=== PATIENT | female | born 1995 | race Caucasian/White ===

== ENCOUNTER 2021-12-02 16:04 | Inpatient (IN) | payer OTHER ==
[~2021-12-02] VITALS: Ht 149.9 cm; Wt 74.5 kg
[2021-12-02] MEDS ORDERED: LABE100T5 PO (16:17)
[2021-12-02] MEDS ORDERED: PROZ20CA11 PO (16:17)
[2021-12-02] MEDS ORDERED: HOME MED LIST COMPLETE! XX SCH (17:20)
[2021-12-02 17:21] LABS: HEMATOCRIT 40.6 % (36.0-47.0); HEMOGLOBIN 12.6 g/dl (12.0-15.5); MEAN CORPUSCULAR HEMOGLOBIN 23.6 pg (27.0-33.0); PLATELET COUNT, AUTOMATED 317 10^3/uL (150-450); RED BLOOD COUNT 5.34 10^6/uL (4.00-5.40); WHITE BLOOD COUNT 9.8 10^3/uL (4.0-10.0)
[2021-12-02 17:49] LABS: ACETAMINOPHEN LEVEL < 2.0 UG/ML (10.0-30.0); ALBUMIN 4.5 GM/DL (3.2-5.2); ALT/SGPT 60 U/L (12-78); BILIRUBIN,DIRECT < 0.1 MG/DL (0.0-0.2); BILIRUBIN,TOTAL 0.2 MG/DL (0.2-1.0); BLOOD UREA NITROGEN 14 MG/DL (7-18); CALCIUM LEVEL 9.9 MG/DL (8.5-10.1); CARBON DIOXIDE LEVEL 28 MEQ/L (21-32); CHLORIDE LEVEL 104 MEQ/L (98-107); CREATININE FOR GFR 0.82 MG/DL (0.55-1.30); ETHYL ALCOHOL (ETHANOL) < 0.003 % (0.000-0.010); GLOMERULAR FILTRATION RATE > 60.0 (>60); GLUCOSE, FASTING 90 MG/DL (70-100); MAGNESIUM LEVEL 2.1 MG/DL (1.8-2.4); POTASSIUM SERUM 4.1 MEQ/L (3.5-5.1); SODIUM LEVEL 140 MEQ/L (136-145); TOTAL PROTEIN 8.8 GM/DL (6.4-8.2)
[2021-12-02 17:56] LABS: HCG, SERUM QUALITATIVE NEGATIVE (NEGATIVE)
[2021-12-02 18:05] LABS: RSV AMPLIFICATION NEGATIVE (NEGATIVE)
[2021-12-02] MEDS ORDERED: ACETAMINOPHEN 325 MG TAB PO ONE (18:30)
[2021-12-02 21:56] LABS: AMPHETAMINES LEVEL URINE NEGATIVE (NEGATIVE); BARBITURATES URINE NEGATIVE (NEGATIVE); BENZODIAZEPINES URINE NEGATIVE (NEGATIVE); CANNABINOIDS URINE POSITIVE (NEGATIVE); COCAINE METABOLITE URINE NEGATIVE (NEGATIVE); METHADONE URINE NEGATIVE (NEGATIVE); OPIATES URINE NEGATIVE (NEGATIVE); PHENCYCLIDINE URINE NEGATIVE (NEGATIVE)
[2021-12-02] MEDS ORDERED: MAALOX 30 ML SUSP *UDC PO PRN (22:40)
[2021-12-02] MEDS ORDERED: LORazepam 1 MG TAB PO PRN (22:40)
[2021-12-02] MEDS ORDERED: MOM 30ML SUSPENSION UDC PO PRN (22:40)
[2021-12-03 00:30] VITALS: BP 168/112
[2021-12-03] MEDS ORDERED: LABETALOL 100MG TAB PO ONE (00:35)
[2021-12-03] MEDS: traZODone 50 MG TAB PO PRN ×2 (00:48→20:51)
[2021-12-03] MEDS: ACETAMINOPHEN TAB 650MG DOSE (2X325MG) PO PRN ×2 (00:48→09:26)
[2021-12-03 06:37] VITALS: BP 151/86
[2021-12-03] MEDS ORDERED: FLUoxetine 20 MG CAP PO SCH (09:00)
[2021-12-03] MEDS ORDERED: LABETALOL 100MG TAB PO SCH (09:00)
[2021-12-03] MEDS ORDERED: RIZATRIPTAN BENZOATE 10 MG TAB PO PRN (12:45)
[2021-12-03] MEDS ORDERED: FIORICET TAB PO ONE (12:45)
[2021-12-03] MEDS ORDERED: LOSARTAN 50MG TABLET PO ONE (13:00)
[2021-12-03 13:55] LABS: INR 1.03; PROTHROMBIN TIME 13.9 SECONDS (12.7-14.5)
[2021-12-03 13:56] LABS: PARTIAL THROMBOPLASTIN TIME 30.2 SECONDS (25.9-37.0)
[2021-12-03 13:59] LABS: D-DIMER QUANT 343.46 ng/ml (<500)
[2021-12-03 14:00] VITALS: BP 160/90
[2021-12-03 14:16] LABS: ALBUMIN 4.4 GM/DL (3.2-5.2); ALT/SGPT 54 U/L (12-78); BILIRUBIN,DIRECT < 0.1 MG/DL (0.0-0.2); BILIRUBIN,TOTAL 0.5 MG/DL (0.2-1.0); C REACTIVE PROTEIN QUANTITATIV 0.44 MG/DL (0.00-0.30); FERRITIN 9 NG/ML (8-252); LDH LACTATE DEHYDROGENASE 147 U/L (84-246); TOTAL PROTEIN 8.7 GM/DL (6.4-8.2)
[2021-12-03 14:33] LABS: CPK CREATINE PHOSPHOKINASE 99 U/L (26-192)
[2021-12-03] MEDS: GABAPENTIN 100 MG CAP PO SCH ×2 (15:13→20:51)
[2021-12-03] MEDS: LOSARTAN 50MG TABLET PO SCH (21:19)
[2021-12-04 06:54] VITALS: BP 134/81
[2021-12-04] MEDS: GABAPENTIN 100 MG CAP PO SCH ×3 (09:36→22:28)
[2021-12-04] MEDS: FLUoxetine 20 MG CAP PO SCH (09:36)
[2021-12-04] MEDS: ACETAMINOPHEN TAB 650MG DOSE (2X325MG) PO PRN (09:38)
[2021-12-04] MEDS: LOSARTAN 50MG TABLET PO SCH ×2 (09:51→22:28)
[2021-12-04 10:15] VITALS: BP 158/96
[2021-12-04 17:38] VITALS: BP 147/93
[2021-12-04 22:15] VITALS: BP 158/96
[2021-12-04] MEDS: traZODone 50 MG TAB PO PRN (22:29)
[2021-12-05 07:06] VITALS: BP 145/82
[2021-12-05] MEDS ORDERED: GABA-1171 PO (08:59)
[2021-12-05] MEDS ORDERED: FLUO-96 PO (08:59)
[2021-12-05] MEDS ORDERED: FLUO40CA PO (08:59)
[2021-12-05] MEDS ORDERED: TRAZ-252 PO (08:59)
[2021-12-05] MEDS ORDERED: MAXA10TA14 PO (08:59)
[2021-12-05] MEDS ORDERED: COZA50TA PO (08:59)
[2021-12-05] MEDS ORDERED: SELF1KIT MC (09:03)
[2021-12-05] MEDS ORDERED: AMLO10TA PO (09:03)
[2021-12-05] MEDS: GABAPENTIN 100 MG CAP PO SCH (09:22)
[2021-12-05] MEDS: FLUoxetine 20 MG CAP PO SCH (09:24)
[2021-12-05 09:25] VITALS: BP 162/99
[2021-12-05] MEDS: LOSARTAN 50MG TABLET PO SCH (09:25)
[2021-12-05 12:08] VITALS: BP 142/98
[2021-12-05 13:31] VITALS: BP 145/82
== END 2021-12-05 14:33 | disposition home or self-care (01) | DRG 885 ==
LOC: M ED 16:04 → M ED INP 22:36 → M PSY 12-03 00:06
PROVIDERS: ADMIT Student in an Organized Health Care Education/Training Program; ATTEND Student in an Organized Health Care Education/Training Program
DX: F33.1 Major depressive disorder, recurrent, moderate (principal); U07.1 COVID-19; R45.851 Suicidal ideations; F41.9 Anxiety disorder, unspecified; F17.210 Nicotine dependence, cigarettes, uncomplicated; F60.89 Other specific personality disorders; F12.10 Cannabis abuse, uncomplicated; I10 Essential (primary) hypertension; G43.909 Migraine, unspecified, not intractable, without status migrainosus; I16.0 Hypertensive urgency; M26.603 Bilateral temporomandibular joint disorder, unspecified; Z62.810 Personal history of physical and sexual abuse in childhood; Z62.811 Personal history of psychological abuse in childhood; Z91.51 Personal history of suicidal behavior; Z81.8 Family history of other mental and behavioral disorders; Z79.899 Other long term (current) drug therapy; Z88.0 Allergy status to penicillin; Z88.8 Allergy status to other drugs, medicaments and biological substances; R74.01 Elevation of levels of liver transaminase levels; Z91.048 Other nonmedicinal substance allergy status; Z91.040 Latex allergy status

== ENCOUNTER → 2022-05-10 | Outpatient (CLI) | payer OTHER ==
[~2022-05-10] MED LIST: AMLO10TA PO; COZA50TA PO; FLUO-96 PO; FLUO40CA PO; GABA-1171 PO; LABE100T5 PO; MAXA10TA14 PO; PROZ20CA11 PO; SELF1KIT MC; TRAZ-252 PO
== END ==
LOC: M LAB 14:04
PROVIDERS: ATTEND Nurse Practitioner Family
DX: Z32.01 Encounter for pregnancy test, result positive (principal); Z36.9 Encounter for antenatal screening, unspecified

== ENCOUNTER → 2024-07-10 | Outpatient (REF) ==
[~2024-07-10] MED LIST changes: -COZA50TA PO; +LABE100T40 PO; -LABE100T5 PO; +LOSA-528 PO; -MAXA10TA14 PO; +RIZA10TA64 PO
== END ==
LOC: M LAB 14:30
PROVIDERS: ATTEND Nurse Practitioner Adult Health
DX: Z00.00 Encounter for general adult medical examination without abnormal findings (principal)